=== PATIENT | male | born 1980 | race Caucasian/White ===

== ENCOUNTER 2018-02-13 19:48 | Inpatient (IN) | END 2018-02-18 17:05 | disposition home or self-care (01) | DRG 563 ==

== ENCOUNTER 2018-03-11 14:43 | Emergency (ER) | END 2018-03-11 16:30 | disposition home or self-care (01) ==

== ENCOUNTER 2018-06-14 01:20 | Inpatient (IN) | payer OTHER ==
[~2018-06-14] VITALS: Ht 177.8 cm; Wt 109.0 kg
[~2018-06-14 01:20] MED LIST: ACET500C5 PO; APIX5TAB PO
[2018-06-14] MEDS ORDERED: ENOXAPARIN 60 MG/0.6 ML SYG SC ONE (03:00)
[2018-06-14] MEDS ORDERED: ACETAMINOPHEN 325 MG TAB PO PRN ×2 (04:00→05:30)
[2018-06-14] MEDS ORDERED: ONDANSETRON 4 MG INJ IV PRN (04:00)
[2018-06-14] MEDS ORDERED: ONDANSETRON 4 MG TAB PO PRN (05:30)
[2018-06-14] MEDS ORDERED: NACL 0.9% 3 ML SYG IV SCH (05:30)
[2018-06-14] MEDS ORDERED: DOCUSATE SODIUM 100 MG CAP PO PRN (05:30)
[2018-06-14] MEDS ORDERED: HYDROCODONE/APAP (5/325) TAB PO PRN (05:30)
[2018-06-14] MEDS ORDERED: BISACODYL (EC) 5 MG TAB PO PRN (05:30)
--- NOTE | 2018-06-14 06:19 | ERD ---
ER Documentation Chief Complaint Chief Complaint pain/swelling right leg x 3 days. hx of dvt HPI This is a 37-year-old male with obesity, a right knee trauma complicated by DVT and PE, currently on Eliquis who ran out of his medication 4-5 days ago and now presents for progressive worsening right lower extremity swelling and pain. The patient is concerned that his DVT could have recurred. His sensation is still intact and he is able to move the lower extremity. His foot is not cold or blue or pale. The patient denies feeling sick recently. The patient denies fever or chills. The patient has had no headache or vision changes. The patient does not endorse neck or back pain. The patient denies lightheadedness or dizziness. The patient has had no chest pain or trouble breathing. The patient denies nausea or vomiting. The patient denies abdominal pain. The patient denies changes to bowel movements or urination. The patient has had no focal deficits. The patient has had no weakness or numbness or tingling to the face or extremities. ROS All systems reviewed and are negative except as per history of present illness. Medications Home Meds Active Scripts Apixaban* (Eliquis*) 5 Mg Tablet, 5 MG PO BID, #60 TAB 5 Refills Prov:RONALD VÁSQUEZ NP 04/03/18 Acetaminophen* (Tylophen*) 500 Mg Capsule, 1 CAP PO Q6H PRN for PAIN AND OR ELEVATED TEMP, #20 CAP Prov:EVY HIGUERA PA-C 03/11/18 Allergies Allergies: Coded Allergies: No Known Allergy (Unverified , 03/30/18) PMhx/Soc History of Surgery: No Anesthesia Reaction: No Hx Neurological Disorder: No Hx Respiratory Disorders: Yes (SOB on exertion, PE) Hx Cardiac Disorders: Yes (DVT) Hx Psychiatric Problems: No Hx Miscellaneous Medical Probl: No Hx Alcohol Use: Yes (DAILY) Hx Substance Use: Yes (Marijuana) Hx Tobacco Use: Yes (1/2 PACK DAILY) Smoking Status: Current every day smoker FmHx Family History: No diabetes Physical Exam Vitals Vital Signs Date Temp Pulse Resp B/P (MAP) Pulse Ox O2 O2 Flow FiO2 Time Delivery Rate 06/14/18 107 18 144/87 98 Room Air 02:35 (106) 06/14/18 98.4 103 20 137/88 97 01:23 (104) Physical Exam Const: No apparent distress, well-developed, well-nourished Head: Normocephalic, Atraumatic Eyes: Normal Conjunctiva. Extraocular movements intact. Pupils equal, round and reactive to light ENT: Normal External Ears, Nose and Mouth. Neck: Full range of motion. No meningismus. Resp: Clear to auscultation bilaterally, No wheezes, rales or rhonchi Cardio: Regular rate and rhythm. No murmurs, rubs or gallops Abd: Morbid obesity. Soft, non tender, non distended. Normal bowel sounds Skin: No petechiae or rashes Back: No midline tenderness. No CVA tenderness Ext: No cyanosis. Significant 2+ pitting right lower extremity edema. Tenderness to palpation of the right calf. Neur: Awake and alert, oriented 4. Cranial nerves intact. No facial droop. Normal strength, sensation and coordination. Psych: Normal Mood and Affect Result Diagram: 06/14/18 0334 06/14/18 0334 Results 24 hrs Laboratory Tests Test 06/14/18 03:34 White Blood Count 10.5 10^3/ul Red Blood Count 5.09 10^6/ul Hemoglobin 14.4 g/dl Hematocrit 44.1 % Mean Corpuscular Volume 86.6 fl Mean Corpuscular Hemoglobin 28.3 pg Mean Corpuscular Hemoglobin Concent 32.7 g/dl Red Cell Distribution Width 14.4 % Platelet Count 195 10^3/UL Mean Platelet Volume 11.4 fl Immature Granulocytes % 0.400 % Neutrophils % 63.3 % Lymphocytes % 26.5 % Monocytes % 8.5 % Eosinophils % 1.0 % Basophils % 0.3 % Nucleated Red Blood Cells % 0.0 /100WBC Immature Granulocytes # 0.040 10^3/ul Neutrophils # 6.6 10^3/ul Lymphocytes # 2.8 10^3/ul Monocytes # 0.9 10^3/ul Eosinophils # 0.1 10^3/ul Basophils # 0.0 10^3/ul Nucleated Red Blood Cells # 0.0 10^3/ul Prothrombin Time 13.0 Sec Prothrombin Time Ratio 1.0 INR International Normalized Ratio 0.97 Activated Partial Thromboplast Time 29.8 Sec Sodium Level 141 mmol/L Potassium Level 4.6 mmol/L Chloride Level 105 mmol/L Carbon Dioxide Level 28 mmol/L Anion Gap 8 Blood Urea Nitrogen 17 mg/dl Creatinine 0.85 mg/dl Est Glomerular Filtrat Rate mL/min > 60 mL/min Glucose Level 101 mg/dl Calcium Level 10.0 mg/dl Current Medications Medications Dose Sig/Jorge Luis Start Time Status Last (Trade) Ordered Route PRN Stop Time Admin Dose Reason Admin Enoxaparin 110 mg ONCE ONCE 06/14/18 DC 06/14/18 Sodium SC 03:00 04:24 (Lovenox) 06/14/18 03:01 Procedures/MDM MDM The patient's presentation warrants further investigation. Previous medical records, if available, were reviewed. LABS The patient's laboratory testing was obtained and reviewed. No emergent treatment was required unless described below. CBC: No E/o of systemic infection or severe anemia or thrombocytopenia BMP: No E/o severe acidosis or alkalosis or renal failure or diabetic ketoacidosis PT/INR: No E/o significant coagulopathy IMAGING Imaging and Radiology interpretation reviewed. RLE Doppler FINDINGS: There is redemonstrated thrombus of the right popliteal vein without compressibility, unchanged. The right common and superficial femoral are patent with normal color flow. 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 Findings reported by the graphic technician to the right femoral at the time of examination. Electronically viewed and signed by .Sancho Beal MD, MD on 06/14/2018 03:02 TREATMENT/DISPOSITION The patient presents for likely recurrence of his DVT related to noncompliance with his Eliquis. The patient was given a dose of Lovenox in the emergency department. I do feel that the patient requires admission for further management given his complicated and significant history of DVT and pulmonary embolism. At this time, I feel that the patient requires admission for further evaluation and management. The patient will be admitted to panel in accordance with the patient's insurance. The patient was accepted by Dr. Del Cid on 06/14/2018. Disclaimer: Inadvertent spelling and grammatical errors are likely due to EHR/dictation software use and do not reflect on the overall quality of patient care. Note that the electronic time recorded on this note does not necessarily reflect the actual time of the patient encounter. Departure Diagnosis: Primary Impression: DVT (deep venous thrombosis) DVT location: lower extremity Affected thrombotic vein of extremity: popliteal Chronicity: unspecified Laterality: right Qualified Codes: I82.431 - Acute embolism and thrombosis of right popliteal vein Additional Impressions: Right leg swelling Right knee injury Encounter type: sequela Qualified Codes: S89.91XS - Unspecified injury of right lower leg, sequela Condition: Serious NATALIIA MEDINA MD Jun 14, 2018 06:19
--- NOTE | 2018-06-14 06:59 | HP ---
Date/Time of Note Date/Time of Note DATE: 06/14/18 TIME: 06:45 Assessment/Plan VTE Prophylaxis Pharmacological prophylaxis: LMWH Assessment/Plan Hospital Course Focus messaging me stupid function pieces of shift this is a 37-year male being admitted to the [facility] floor for: #1 right lower extremity swelling: Secondary possibly to noncompliance with Eliquis resulting in swelling. Patient has a history of a DVT of the right lower extremity however the venous Doppler study showed: There is redemonstrated thrombus of the right popliteal vein without compressibility, unchanged. He was started on Lovenox subcu in the emergency department, we will continue this at the current time however likely patient will need to be switched back to Eliquis. Patient does report that he was able to get a refill of his Eliquis from his primary care doctor. We will need to consult case management and social work to confirm that the patient will have adequate supply of this. Given his increased swelling I will consult Dr. Cope for any further recommendations. #2. Pulmonary embolism: The patient at the current time denies any chest pain or shortness of breath. He is not hypoxic. He is currently on Lovenox therapeutic dose. Likely will switch to Eliquis upon discharge. #3 psychiatric disorders, bipolar/PTSD: We will need to confirm patient's home medications. Currently he is stable #4 obesity: We will check hemoglobin A 1C, lipid panel, TSH #5 debility with right foot drop, likely secondary to recent extensive right knee injury. Patient is wheelchair bounded. DVT GI prophylaxis: Lovenox, no GI prophylaxis indicated Further treatment strategy will be implemented as per the clinical course Result Diagram: 06/14/18 0334 06/14/18 0334 Results 24hrs Laboratory Tests Test 06/14/18 03:34 White Blood Count 10.5 Red Blood Count 5.09 Hemoglobin 14.4 Hematocrit 44.1 Mean Corpuscular Volume 86.6 Mean Corpuscular Hemoglobin 28.3 L Mean Corpuscular Hemoglobin Concent 32.7 Red Cell Distribution Width 14.4 Platelet Count 195 Mean Platelet Volume 11.4 H Immature Granulocytes % 0.400 Neutrophils % 63.3 Lymphocytes % 26.5 Monocytes % 8.5 Eosinophils % 1.0 Basophils % 0.3 Nucleated Red Blood Cells % 0.0 Immature Granulocytes # 0.040 H Neutrophils # 6.6 Lymphocytes # 2.8 Monocytes # 0.9 Eosinophils # 0.1 Basophils # 0.0 Nucleated Red Blood Cells # 0.0 Prothrombin Time 13.0 Prothrombin Time Ratio 1.0 INR International Normalized Ratio 0.97 Activated Partial Thromboplast Time 29.8 Sodium Level 141 Potassium Level 4.6 Chloride Level 105 Carbon Dioxide Level 28 Anion Gap 8 Blood Urea Nitrogen 17 Creatinine 0.85 Est Glomerular Filtrat Rate mL/min > 60 Glucose Level 101 Calcium Level 10.0 HPI/ROS Admit Date/Time Admit Date/Time Jun 14, 2018 at 03:56 Hx of Present Illness Chief complaint: Right leg swelling times 4days, missed Eliquis doses for approximately 4 days This is a 37-year-old male with a history of extensive right knee injury resulting in DVT development as well as eventual pulmonary embolism who presented to the emergency department with 3 days of increased right lower extremity swelling. Patient reports that his swelling had began to decrease after he started the Eliquis however he ran out of his Eliquis a few days ago and since then started noticing increased swelling. Denies any chest pain or shortness of breath. Denies any fevers. Upon further questioning patient does report that he was able to get a refill of his Eliquis from his primary care doctor and he thinks that he will be able to continue to get the prescriptions as he was advised to be treated for approximately 6 months. He uses a walker to get around. Allergies: NKDA Medications: See OBI PARRA Const: As per HPI Eyes : No pain discharge or redness or change in visual acuity ENT: No pain, sore throat, congestion, congestion, dysphagia or discharge Respiratory: No shortness of breath, cough, sputum, wheezing, or pleuritic pain Cardiovascular: No chest pain, palpitation, PND, or edema GI : no change in appetite, abdominal pain, nausea, vomiting, diarrhea, constipation, or change in the color his stool Genitourinary: No dysuria, hematuria, flank pain , discharge or CVA tenderness Musculoskeletal: As per HPI Skin: As per HPI Neuro: No headache, dizziness, syncope, seizure, focal weakness Endocrine: No polyuria, polydipsia, temperature intolerance Psych: No hallucination, depression, anxiety or suicidal ideation PMH/Family/Social Past Medical History Right knee injury with multiple ligament injury right fem-pop deep venous thrombosis secondary to extensive right knee injury. Right foot drop possibly from compartment syndrome from the injury, currently wheelchair-bound.history of bipolar disorders, PTSD,, pulmonary embolism Medications Current Medications Ondansetron HCl (Zofran Inj) 4 mg BRIDGE ORDER PRN IV NAUSEA AND/OR VOMITING; Start 06/14/18 at 04:00; Stop 06/15/18 at 03:59 Acetaminophen (Tylenol Tab) 650 mg ER BRIDGE PRN PO MILD PAIN(1-3)OR ELEVATED TEMP; Start 06/14/18 at 04:00; Stop 06/15/18 at 03:59 IV Flush (NS 3 ml) 3 ml PER PROTOCOL IV ; Start 06/14/18 at 05:30 Ondansetron HCl (Zofran Tab) 4 mg Q6H PRN PO NAUSEA AND/OR VOMITING; Start 06/14/18 at 05:30 Acetaminophen (Tylenol Tab) 650 mg Q6H PRN PO PAIN LEVEL 1-3 OR FEVER; Start 06/14/18 at 05:30 Acetaminophen/ Hydrocodone Bitart (Chilcoot (5/325)) 1 tab Q6H PRN PO MODERATE PAIN LEVEL 4-6; Start 06/14/18 at 05:30 Docusate Sodium (Colace) 100 mg Q12H PRN PO CONSTIPATION; Start 06/14/18 at 05:30 Bisacodyl (Dulcolax) 5 mg DAILY PRN PO CONSTIPATION; Start 06/14/18 at 05:30 Enoxaparin Sodium (Lovenox) 80 mg Q12H SC ; Start 06/14/18 at 15:00 Enoxaparin Sodium (Lovenox) 30 mg Q12H SC ; Start 06/14/18 at 15:00 Coded Allergies: No Known Allergy (Unverified , 03/30/18) Past Surgical History Past Surgical Hx: no surgical history, other Family History Significant Family History: no pertinent family hx Social History Alcohol Use: none Smoking Status: Current every day smoker Drug Use: none Exam/Review of Systems Vital Signs Vitals Vital Signs Date Temp Pulse Resp B/P (MAP) Pulse Ox O2 O2 Flow FiO2 Time Delivery Rate 06/14/18 97.6 99 16 138/91 96 Room Air 05:46 (107) Exam Exam General: Patient is currently sitting in bed he is playing games on his phone. HEENT: Atraumatic, normocephalic. The pupils are equal, round and reactive. Extraocular motor are intact Neck: Supple with full range of motion. No rigidity or meningismus Chest: Nontender Lungs: Clear to auscultation bilaterally no crackles rales or wheezing Heart: Normal S1-S2, Regular rhythm and rate. Abdomen: Soft , nontender, nondistended , bowel sounds are present. No guarding no rebound tenderness , No masses or organomegaly. No costovertebral temporal angle mass Extremities: Right lower extremity swelling greater on the right compared to the left, right foot drop Skin: Swelling of the right leg greater than the left, no erythema warmth noted. No cyanosis noted. Pulses palpable. Neurologic: Normal mental status, speech normal, cranial nerves II through XII are intact, motor and sensory are intact, Additional Comments PROCEDURE: US DVT. CLINICAL INDICATION: Right lower extremity pain. TECHNIQUE: Multiple longitudinal and transverse images of the right lower extremity veins were obtained with layne scale and color Doppler imaging. 2D grayscale measurements with compression, color Doppler flow, and augmentation was performed. COMPARISON: 03/30/2018 FINDINGS: There is redemonstrated thrombus of the right popliteal vein without compressibility, unchanged. The right common and superficial femoral are patent with normal color flow. 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 Findings reported by the desktop technician to the right femoral at the time of examination. RPTAT: HMVK .Sancho Beal MD, Date Time Electronically viewed and signed by .Sancho Beal MD, on 06/14/2018 03:02 .K/ CC: NATALIIA MEDINA MD [id number] TATI PEÑALOZA Jun 14, 2018 06:57
[2018-06-14 08:00] VITALS: BP 133/85; PULSE 83; RESP 19
--- NOTE | 2018-06-14 10:00 | NUR ---
SS Note: Consult SW received order pt to please assist in confirming patient can continue to receive refills on his Eliquis and educate regarding missing doses. SW discussed order with CM and CM checking on Eliquis refills. The patient is a 37-year-old male being admitted to the [facility] floor for right lower extremity swelling. Secondary possibly to noncompliance with Eliquis resulting in swelling, per record. SW met with pt to provide support, complete psychosocial assessment, and link pt to appropriate resources as needed. JPt's spouse at bedside sleeping. Pt awake, alert and oriented x4. Pt cooperative and appeared to be coping appropriately with admission. Pt is and stated he has 3 children, but they do not live with him. Pt verbally his , Elsa Swan , as surrogate decision maker/spokesperson. Pt homeless on and off since he was 15. Pt stated he is staying with his at a friend's house in [place] (pt unable to provide exact address). Pt verbalized he plans to return to friend's home when medically cleared and plans to take public transportation. Pt is unemployed and is a recipient of [employer] [place]. Pt ambulates with w/c since January 2018 and w/c is at bedside. Pt has [employer] insurance and PCP is at [facility]. Pt denied hx of substance abuse. Pt reported hx of Depression, Anxiety, PTSD, and Insomnia. He denied use of psych meds, but has an [facility]. SW inquired about pt's non-compliance with Eliquis. Per pt, he was not able to get Eliquis for a couple of days because he was at a "friend's in [place]" and "trying to survive". Pt stated he fills his medications at [facility] on [address] . SW discussed the importance of med compliance and encouraged pt to fill his medications regularly. SW discussed tentative d/c plan. Pt declined emergency residential. Pt stated he plans to return to friend's address when medically cleared. When SW asked for friend's address, pt stated he will provide address as soon as he obtains it. Pt plans to take public transportation and will be accepting to bus tokens to assist him in getting to location of choice. SW to f/u with pt to complete The Discharge Consent By Patient Without Permanent Address form. Addendum: 06/14/18 at 1544 by ELIAS TAVERAS SW attempted to f/u with pt to obtain address, however, pt was d/c.
--- NOTE | 2018-06-14 10:38 | DS ---
DATE OF ADMISSION: 06/14/2018 DATE OF DISCHARGE: 06/14/2018 ADMISSION DIAGNOSIS: 1. Right lower extremity swelling secondary to re-demonstrated thrombus in the right popliteal vein with noncompliance to Eliquis therapy. 2. Pulmonary embolism. Again, on Eliquis. The patient reports being noncompliant with therapy; how ever, no respiratory symptoms. 3. Psychiatric disorder, bipolar/PTSD. 4. Obesity. 5. Chronic debility with right foot drop secondary to recent extensive right knee surgery for which patient is clinically will be wheelchair bound. CONSULTS ON THE CASE: None. INTERVENTIONS: The patient was just resumed on his Eliquis therapy, which he had not been taking. I maging studies summarized above. The ultrasound did show a recurrent popliteal vein thrombosis. DISCHARGE MEDICATIONS: 1. Eliquis 5 mg p.o. b.i.d. with the patient assures me that he has finally gotten a refill at home and Tylenol as needed for pain. DISPOSITION: To home. ACTIVITIES: As tolerated. DIET: Low cholesterol, low fat. FOLLOWUP: The patient is advised to stay compliant with his Eliquis therapy and follow up with his [facility] doctor within the next 1 to 2 weeks. Dictated By: INDU NOLASCO MD BA/NTS Conf#: [id number] DID#: [id number] CC: INDU NOLASCO MD; TATI PEÑALOZA MD;*EndCC*
--- NOTE | 2018-06-14 12:37 | NUR ---
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 HE SHOWED THE BOTTLE OF ELIQUIS TO PROVED HE HAD IT. Addendum: 06/14/18 at 1239 by TRINITY CHAUHAN Amended: Links added.
--- NOTE | 2018-06-14 14:40 | NUR ---
Patient being discharged. Stable with no signs of distress or SOB. Denies pain. Patient filled prescription for Eliquis yesterday and has bottle with him. No IV access.
[2018-06-14] MEDS ORDERED: ENOXAPARIN 100 MG/ML SYG SC SCH (15:00)
[2018-06-14] MEDS ORDERED: ENOXAPARIN 80 MG/0.8 ML SYG SC SCH (15:00)
[2018-06-14] MEDS ORDERED: ENOXAPARIN 30 MG/0.3 ML SYG SC SCH (15:00)
== END 2018-06-14 14:05 | disposition home or self-care (01) | DRG 301 ==
LOC: E/R 01:20 → PP2 03:56
PROVIDERS: ADMIT Family Medicine; ATTEND Family Medicine
DX: I82.431 Acute embolism and thrombosis of right popliteal vein (principal); Z79.01 Long term (current) use of anticoagulants; F31.9 Bipolar disorder, unspecified; F43.10 Post-traumatic stress disorder, unspecified; Z91.19 Patient's noncompliance with other medical treatment and regimen; E66.9 Obesity, unspecified; Z68.35 Body mass index [BMI] 35.0-35.9, adult
CPT/HCPCS: 36415; 80048; 80061; 83036; 84443; 85025; 85610; 85730; 93971

== ENCOUNTER 2018-07-05 00:10 | Emergency (ER) | payer OTHER ==
[~2018-07-05] VITALS: Ht 175.3 cm; Wt 81.8 kg
[2018-07-05 00:28] VITALS: Ht 175.3 cm; Wt 81.8 kg
[2018-07-05] MEDS ORDERED: ONDANSETRON (ODT) 4 MG TAB ODT STA (01:20)
[2018-07-05] MEDS ORDERED: HYDROCODONE/APAP (10/325) TAB PO ONE (01:30)
--- NOTE | 2018-07-05 02:03 | ERD ---
ER Documentation Chief Complaint Chief Complaint ABD PAIN WITH N/V X1DAY HPI 37-year-old gentleman who presents with multiple different complaints. The patient describes acute on chronic right knee pain. He states that he has a cru nching sensation in his knee when he walks. He is being followed at [facility] [place] for chronic knee pain issues. He is wheelchair dependent. The patient also describes several days of generalized malaise and weakness. Intermittent abdominal cramping. Mild nausea, one episode of nonbloody nonbilious emesis. No constipation and no diarrhea. The patient states that he regularly takes [place] for his chronic pain but has not had a for several days. 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 He denies any new symptoms. ROS All systems reviewed and are negative except as per history of present illness. Medications Home Meds Active Scripts Ondansetron (Ondansetron Odt) 4 Mg Tab.rapdis, 4 MG PO Q6H PRN for NAUSEA AND/OR VOMITING, #10 TAB Prov:TWYLA ESCAMILLA MD 07/05/18 Apixaban* (Eliquis*) 5 Mg Tablet, 5 MG PO BID, #60 TAB 5 Refills Prov:RONALD VÁSQUEZ NP 04/03/18 Acetaminophen* (Tylophen*) 500 Mg Capsule, 1 CAP PO Q6H PRN for PAIN AND OR ELEVATED TEMP, #20 CAP Prov:EVY HIGUERA PA-C 03/11/18 Allergies Allergies: Coded Allergies: No Known Allergy (Unverified , 03/30/18) PMhx/Soc History of Surgery: No Anesthesia Reaction: No Hx Neurological Disorder: No Hx Respiratory Disorders: No Hx Cardiac Disorders: Yes (DVT) Hx Psychiatric Problems: No Hx Miscellaneous Medical Probl: No Hx Alcohol Use: Yes Hx Substance Use: Yes (Marijuana Use) Hx Tobacco Use: Yes (Marijuana) FmHx Family History: No diabetes Physical Exam Vitals Vital Signs Date Temp Pulse Resp B/P (MAP) Pulse Ox O2 O2 Flow FiO2 Time Delivery Rate 07/05/18 99.1 95 19 155/83 96 00:28 (107) Physical Exam General: Disheveled, anxious, no acute distress Head: Normocephalic, atraumatic. Eyes: Pupils equally reactive, EOM intact ENT: Moist mucous membranes Neck: Supple, no lymphadenopathy Respiratory: Lungs clear bilaterally, no distress Cardiovascular: RRR, no murmurs, rubs, or gallops Abdominal: Soft, non-tender, non-distended, no peritoneal signs, no tenderness to McBurney's point : Deferred MSK: The patient has mild soft tissue tenderness to the right knee with slight limited range of motion secondary to pain. Lower extremity edema is noted this appears to be chronic. Neurologic: Alert and oriented, moving all extremities, normal speech, no focal weakness, no cerebellar signs Skin: No rash Psych: Normal mood Result Diagram: 07/05/18 01307/05/18 013 Results 24 hrs Laboratory Tests Test 07/05/18 01:30 White Blood Count 11.2 10^3/ul Red Blood Count 4.96 10^6/ul Hemoglobin 14.0 g/dl Hematocrit 43.5 % Mean Corpuscular Volume 87.7 fl Mean Corpuscular Hemoglobin 28.2 pg Mean Corpuscular Hemoglobin Concent 32.2 g/dl Red Cell Distribution Width 14.2 % Platelet Count 203 10^3/UL Mean Platelet Volume 11.2 fl Immature Granulocytes % 0.300 % Neutrophils % 66.3 % Lymphocytes % 23.9 % Monocytes % 8.3 % Eosinophils % 0.8 % Basophils % 0.4 % Nucleated Red Blood Cells % 0.0 /100WBC Immature Granulocytes # 0.030 10^3/ul Neutrophils # 7.4 10^3/ul Lymphocytes # 2.7 10^3/ul Monocytes # 0.9 10^3/ul Eosinophils # 0.1 10^3/ul Basophils # 0.0 10^3/ul Nucleated Red Blood Cells # 0.0 10^3/ul Sodium Level 143 mmol/L Potassium Level 4.5 mmol/L Chloride Level 105 mmol/L Carbon Dioxide Level 28 mmol/L Anion Gap 10 Blood Urea Nitrogen 15 mg/dl Creatinine 0.81 mg/dl Est Glomerular Filtrat Rate mL/min > 60 mL/min Glucose Level 100 mg/dl Calcium Level 10.0 mg/dl Total Bilirubin 0.0 mg/dl Direct Bilirubin 0.00 mg/dl Indirect Bilirubin 0.0 mg/dl Aspartate Amino Transf (AST/SGOT) 64 IU/L Alanine Aminotransferase (ALT/SGPT) 63 IU/L Alkaline Phosphatase 98 IU/L Total Protein 8.4 g/dl Albumin 4.6 g/dl Globulin 3.80 g/dl Albumin/Globulin Ratio 1.21 Lipase 206 U/L Current Medications Medications Dose Sig/Jorge Luis Start Time Status Last (Trade) Ordered Route PRN Stop Time Admin Dose Reason Admin 1 tab ONCE ONCE 07/05/18 DC 07/05/18 Acetaminophen PO 01:30 01:48 / 07/05/18 01:31 Hydrocodone Bitart ([place] (10/325)) Ondansetron 4 mg ONCE STAT 07/05/18 DC 07/05/18 HCl (Zofran ODT 01:20 01:48 Odt) 07/05/18 01:22 Procedures/MDM EKG, MONITORS, & DIAGNOSTIC IMAGING: X-ray right knee: IMPRESSION: Old fracture of the fibular styloid with proximal displacement. No new fracture is identified. Marked disuse osteopenia, new compared with the prior study. LAB INTERPRETATION: * No acute process MEDICAL DECISION MAKING: The patient exhibits signs and symptoms concerning for narcotic dependence. The patient does not require IV or IM narcotics this appears to be a subacute process. His abdominal pain is nonspecific without signs or symptoms concerning for acute intra-abdominal process. The patient's knee pain is acute on chronic, x-ray imaging would be appropriate but the patient is currently being followed with process improvement specialist. Patient does have a history of DVT and pulmonary embolism but currently appropriately anticoagulated without signs or symptoms concerning for acute thrombi embolic process at this time. JOCELYNE report with 9 visits for pain over last 1 year. ER COURSE: * Oral [place] given * The patient's laboratory testing and diagnostic imaging are unrevealing. * The patient has expressed frustration coming to the emergency room and stating "I came here for nothing". The patient was informed that we rule out serious etiology of his symptoms including laboratory testing. The patient was provided pain medication. * Patient has history of presentation concerning for drug-seeking behavior. * Patient left without getting discharge paperwork CONSULTATION: None DISPOSITION PLAN: The patient does not have an identifiable emergent medical condition that warrants inpatient hospitalization at this time. The patient is deemed safe for discharge with outpatient follow-up. We discussed follow up with the patient's primary care doctor within 24 to 48 hours as needed. We also discussed return to the emergency room for worsening symptoms or worsening condition. Outpatient referral: Primary orthopedics Departure Diagnosis: Primary Impression: Abdominal pain Abdominal location: generalized Qualified Codes: R10.84 - Generalized abdominal pain Additional Impression: Right knee pain Condition: Stable TWYLA ESCAMILLA MD Jul 05, 2018 02:03
[2018-07-05] MEDS ORDERED: ONDA4TAB14 PO (03:09)
== END 2018-07-05 03:20 | disposition home or self-care (01) ==
LOC: E/R 00:10
DX: R10.84 Generalized abdominal pain (principal); M25.561 Pain in right knee; Z87.891 Personal history of nicotine dependence
CPT/HCPCS: 36415; 73562; 80053; 83690; 85025; Z7502; Z7610